=== PATIENT | female | born 1985 | race Caucasian/White ===

== ENCOUNTER 2019-11-22 07:07 | Day surgery (SDC) | payer OTHER ==
[2019-11-22] MEDS ORDERED: PROPOFOL 200 MG/20 ML VIAL ONE (09:59)
[2019-11-22] MEDS ORDERED: Lidocaine 1% PF 5 ML VIAL ONE (09:59)
--- NOTE | 2019-11-22 11:49 | OP ---
DATE OF PROCEDURE: 11/22/2019 [employer] SURGEON: None. PROCEDURE PERFORMED: Esophagogastroduodenoscopy with biopsies. INDICATION: Chronic GERD, poorly responsive to daily omeprazole. MEDICATIONS: See Anesthesia record. FINDINGS: After discussion of the risks, benefits, and alternatives of the procedure, informed consent was obtained and witnessed. Pre-endoscopic cardiopulmonary examination was satisfactory. Time-out was performed before sedation was achieved. Sedation was achieved with Anesthesia assistance in the endoscopy unit. A Pentax adult upper endoscope was placed into the oropharynx and passed through the cricopharyngeus under direct visualization. The proximal and mid esophageal mucosa appeared normal. In the distal esophagus at the GE junction, there was a single linear erosion measuring about 2 cm in length. This was nonbleeding and was shallow. The Z-line was variable and was at 35 cm from the incisors. There was no evidence of any fibrosis. The endoscope was advanced into the stomach. Forward and retroflexed views of the entire gastric mucosa were obtained. In the gastric antrum, there was patchy erythema and edema with a few shallow nonbleeding erosions. There were no deep ulcerations. There was no active bleeding. Biopsies were obtained from the gastric antrum and body to rule out H pylori infection. The endoscope was advanced through the pylorus and into the first and second portions of the duodenum, which appeared normal. The upper endoscope was completely withdrawn and the patient allowed to recover. The patient tolerated the procedure well. There were no immediate postprocedure complications. IMPRESSION: 1. Mild distal erosive esophagitis. 2. Mild erosive gastritis in the antrum, biopsied to rule out Helicobacter pylori. 3. Otherwise normal esophagogastroduodenoscopy. RECOMMENDATIONS: 1. Increase omeprazole to 40 mg twice daily dosing. 2. Follow up pathology on the gastric biopsies. If H pylori is present, treat with triple therapy and confirm eradication. 3. Follow up in GI Clinic in 2 months. Job ID: [id number]
== END 2019-11-22 08:45 ==
LOC: SDC 07:07 → EEVIPCON 07:07 → SDC 08:45
PROVIDERS: ATTEND Internal Medicine
PROC: 0DB78ZX Excision of Stomach, Pylorus, Via Natural or Artificial Opening Endoscopic, Diagnostic (ICD-10-PCS; principal; 2019-11-22)
DX: K21.0 Gastro-esophageal reflux disease with esophagitis (principal); K29.50 Unspecified chronic gastritis without bleeding; Z87.891 Personal history of nicotine dependence
CPT/HCPCS: 88305; 88312; J2001; J2704